=== PATIENT | male | born 1975 | race Caucasian/White ===

== ENCOUNTER 2020-02-26 10:06 | Emergency (ER) | payer OTHER, SELFPAY ==
[2020-02-26 10:06] VITALS: BP 152/112; PULSE 88; RESP 18; TEMP 36.3; O2SAT 98; BMI 24.2
--- NOTE | 2020-02-26 10:15 | RAD_ITS ---
STUDY: X-RAY - RIGHT HAND REASON FOR EXAM: Male, 44 years old. Injury to distal 4th finger several weeks ago -- pain entire hand TECHNIQUE: 3 view(s) of the hand. COMPARISON: None. FINDINGS: Normal radiocarpal articulation. Normal distal radioulnar joint. Normal visualized carpal bones. Normal carpal articulations Normal carpometacarpal articulation of the thumb. Normal second through fifth carpometacarpal joints. Normal metacarpi. Normal metacarpophalangeal joint of the thumb. Normal interphalangeal joint of the thumb. Normal proximal and distal phalanges of the thumb. Normal metacarpophalangeal joints of the second through fifth fingers. Normal proximal and distal interphalangeal joints of the second through fifth fingers. Normal phalanges of the second through fifth fingers. The soft tissue structures are unremarkable. RAD/Hand Min 3 Views IMPRESSION: Normal x-ray examination of the hand. Electronically Signed: Alireza Carey, at 11:01 EDT , Service support ,
--- NOTE | 2020-02-26 10:16 | ED.VIS.GEN ---
History of Present Illness Chief Complaint: Wound Check Informant: Patient Onset: Weeks Context: Gradual Onset Timing: Continuous Current Severity: Moderate Maximum Severity: Moderate Narrative: The patient is an otherwise healthy 44-year-old male presents to the emergency department with right ring finger injury. The patient states about 2 weeks ago, he was using a rip saw. He accidentally incised the tip of his finger. He states it was very small. Over the past 2 days, he is noticed is been more painful at the tip. He states that he try to place a needle in it and got some purulent drainage out. He was concerned because he had some throbbing pain up the arm today. He denies any fevers or chills. He states he still able to flex and extend. He has no history of diabetes or immunosuppression. He is otherwise been in his normal state of health. Prior similar symptoms: No Recent Illness/Hospitalization: No Past Medical History - Allergies and Home Meds Allergies/Adverse Reactions: Allergies No Known Allergies Allergy (Verified 02/26/20 10:08) Primary Care Physician: [facility] ,Out of [Primary Care Provider] - Prior records reviewed: Yes Past Medical History: None Surgical History: no surgical history Review of Systems General: Denies: Chills, Fever, Sweats Eyes: Denies: Visual changes - bilaterally, Diplopia ENT: Denies: Rhinorrhea, Sore throat Cardiovascular: Denies: Chest pain, Palpitations Respiratory: Denies: Dyspnea, Cough, Dyspnea on exertion Gastrointestinal: Denies: Abdominal pain, Nausea, Vomiting, Diarrhea, Melena, Hematochezia Genitourinary: Denies: Dysuria, Hematuria, Frequency Musculoskeletal: Denies: Back pain, Extremity Pain Skin: Denies: Rash, Wounds Neurological: Denies: Headache, Weakness, Numbness Physical Exam Vital Signs/Narrative: Vital Signs Temp Pulse Resp BP Pulse Ox 02/26/20 10:06 97.3 F L 88 18 152/112 H 98 Inital Vital Signs reviewed: Yes General: Well nourished, Well developed, No Acute Distress Head: Normocephalic, Atraumatic Eyes: Perrl, EOMI ENT: Moist mucous membranes, No rhinorrhea Neck: Supple, Nontender Cardiovascular: Regular rate, Regular rhythm, No murmurs Respiratory: No distress, CTA bilaterally, Chest nontender Abdomen: Soft, Nontender, Nondistended, Normal bowel sounds Back: Nontender, Normal Inspection Extremities: No edema, Tenderness - Tenderness at the distal tip of the finger, but not within the pad itself. No evidence of felon or paronychia. No evidence of flexor tendon synovitis. No streaking. Compartments are soft. Skin: Normal color, No rash Neurological: Alert, Oriented x3, Cranial nerves II-XII grossly intact, Normal Strength, Normal Sensation Psychological: Normal affect, Normal Mood Diagnostic/Tx/Re-eval Clinical Impression(s) from Imaging Studies Hand X-Ray 02/26/20 10:15 IMPRESSION: Normal x-ray examination of the hand. Electronically Signed: Alireza Carey, at 11:01 EDT , Service support , - Medical Decision Making The patient has fingertip abscess. There is no evidence of felon or paronychia. Plain films were obtained which are unremarkable. He has no evidence of flexor Alma Delia synovitis. There is no lymphangitic streak. Digital block was performed with 8 cc of bupivacaine. Once anesthesia was achieved, the abscess was incised. There was a significant amount of retained material in it. It was irrigated and copiously removed. The patient tolerated this without issue. Again, there is no tenderness in the actual pad consistent with felon. I am going to place him on oral antibiotics and have him follow-up with hand surgery. Impression 1. Fingertip abscess ED Disposition - Plan for ED Patient: Instructions: ED Crush Injury Finger No Fx Prescriptions: Smz/Tmp Ds [Bactrim Ds] 1 tab PO BID #14 tab Prescription Printed Cephalexin [Keflex] 500 mg PO Q6 #40 cap Prescription Printed Hydrocodone Bitart/Apap 5-325 [Carson 5MG-325MG] 1 tab PO Q6H PRN PRN 3 Days #10 tab PRN Reason: Pain Prescription Printed Referrals: Vinayak Hutson MD [STAFF PHYSICIAN] - As soon as possible
[2020-02-26] MEDS: Bupivacaine Mpf 0.5% 30 ML VIAL INFILT (10:22)
[2020-02-26 11:44] VITALS: RESP 17
== END 2020-02-26 11:44 | disposition home or self-care (01) ==
LOC: ED 11:35
PROVIDERS: Emergency Provider Emergency Medicine
DX: L02.511 Cutaneous abscess of right hand (principal)
CPT/HCPCS: 26010; 10060; 73130; 99283

== ENCOUNTER → 2020-03-19 09:03 | Outpatient (CLI) | payer OTHER, SELFPAY ==
[2020-03-19 08:29] VITALS: BMI 24.2
--- NOTE | 2020-03-19 09:17 | RAD_ITS ---
STUDY: X-RAY - RIGHT ELBOW REASON FOR EXAM: Male, 44 years old. Injury to hand/finger about a month ago, now has pain in the elbow TECHNIQUE: 3 view(s) of the elbow. COMPARISON: None. FINDINGS: Normal visualized humerus, radius and ulna. Normal radiocapitellar and ulnotrochlear articulations. The soft tissue structures are unremarkable. RAD/Elbow min 3 Views IMPRESSION: Normal x-ray examination of the elbow. Electronically Signed: Baljit Durant MD at 9:34 EDT , Service support ,
== END ==
PROVIDERS: Referring Provider Surgery; Visit Provider Surgery
DX: M77.11 Lateral epicondylitis, right elbow (principal); G56.21 Lesion of ulnar nerve, right upper limb; F17.200 Nicotine dependence, unspecified, uncomplicated
CPT/HCPCS: 73080

== ENCOUNTER → 2020-07-02 | Outpatient (CLI) | payer OTHER, SELFPAY ==
[2020-03-19 08:29] VITALS: BMI 24.2
[2020-04-02 08:48] VITALS: BMI 24.2
--- NOTE | 2020-07-02 14:42 | NEURO ---
NCS and/or EMG Patient Report Ordering Doctor: Vinayak Hutson DATE OF SERVICE: 07/02/20 Ovidio Huddleston presents for electrodiagnostic testing of the right upper limb. He reports numbness and pain in the right hand since sustaining a laceration injury to the right fourth digit in February 2020. Electrodiagnostic findings: Right median motor response is within normal limits. Normal right ulnar motor response. Normal median ulnar F waves. Median, ulnar and radial sensory responses are within normal limits. Median palmar response is normal. On needle EMG, all muscles tested in the right upper limb showed no evidence of denervation with normal motor unit action potentials. Electrodiagnostic impression: This is a normal electrodiagnostic study of the right upper limb. No electrodiagnostic abnormalities suggestive of peripheral neuropathy. If there are any further questions, please not hesitate to contact me.
== END | disposition home or self-care (01) ==
LOC: PSN 08:29
PROVIDERS: Referring Provider Surgery; Visit Provider Surgery
DX: G56.21 Lesion of ulnar nerve, right upper limb (principal); G90.511 Complex regional pain syndrome I of right upper limb; M77.11 Lateral epicondylitis, right elbow; L02.511 Cutaneous abscess of right hand; F17.200 Nicotine dependence, unspecified, uncomplicated; Z98.890 Other specified postprocedural states
CPT/HCPCS: 95886; 95910